=== PATIENT | female | born 1980 | race Caucasian/White ===

== ENCOUNTER 2016-12-31 01:24 | Emergency (ER) | payer MEDICAID ==
[~2016-12-31] VITALS: Ht 154.9 cm; Wt 74.0 kg
[2016-12-31 01:34] VITALS: Ht 154.9 cm; Wt 74.0 kg
[2016-12-31] MEDS ORDERED: SOD CHLORIDE 0.9% 1,000 ML IV STA (06:11)
[2016-12-31] MEDS ORDERED: ONDANSETRON 4 MG INJ IV STA (06:11)
[2016-12-31] MEDS ORDERED: FAMOTIDINE 20 MG INJ IV ONE (06:30)
[2016-12-31 07:33] LABS: ADD SCAN DIFF NO
[2016-12-31 07:36] LABS: ADD UMIC YES; BASOPHILS % 0.3 % (0.0-2.0); HEMATOCRIT 43.6 % (37.0-47.0); HEMOGLOBIN 14.2 g/dl (12.0-16.0); LYMPHOCYTES # 1.2 10^3/ul (0.8-2.9); LYMPHOCYTES % 9.6 % (15.0-51.0); MEAN CORPUSCULAR HEMOGLOBIN 29.3 pg (29.0-33.0); MEAN CORPUSCULAR HGB CONC 32.6 g/dl (32.0-37.0); MEAN CORPUSCULAR VOLUME 90.1 fl (82.0-101.0); MEAN PLATELET VOLUME 13.4 fl (7.4-10.4); MONOCYTE # 0.3 10^3/ul (0.3-0.9); NEUTROPHILS % 87.5 % (39.0-77.0); PLATELET COUNT 194 10^3/UL (140-415); RED BLOOD COUNT 4.84 10^6/ul (4.20-5.40); RED CELL DISTRIBUTION WIDTH 13.2 % (11.5-14.5); URINE BILIRUBIN (Dip) NEGATIVE (NEGATIVE); URINE BLOOD (Dip) NEGATIVE (NEGATIVE); URINE COLOR LT. YELLOW (YELLOW); URINE GLUCOSE (Dip) NEGATIVE (NEGATIVE); URINE KETONES (Dip) NEGATIVE (NEGATIVE); URINE LEUKOCYTE ESTERASE (Dip) NEGATIVE (NEGATIVE); URINE NITRITE (Dip) NEGATIVE (NEGATIVE); URINE TOTAL PROTEIN (Dip) TRACE (NEGATIVE); URINE UROBILINOGEN (Dip) 0.2 E.U./dL (0.1-1.0); WHITE BLOOD COUNT 12.6 10^3/ul (4.8-10.8)
[2016-12-31 07:49] LABS: ALBUMIN 4.6 g/dl (3.3-4.9)
[2016-12-31 07:50] LABS: INR 0.93; PARTIAL THROMBOPLASTIN TIME 25.5 Sec (25.0-35.0); POTASSIUM 3.4 mmol/L (3.5-5.1); PROTIME 12.5 Sec (12.2-14.2)
[2016-12-31 07:52] LABS: ALBUMIN/GLOBULIN RATIO 1.21; BILIRUBIN,INDIRECT 0.5 mg/dl (0-1.1); BILIRUBIN,TOTAL 0.5 mg/dl (0.2-1.3); CREATININE 0.5 mg/dl (0.44-1.00); TOTAL PROTEIN 8.4 g/dl (6.1-8.1)
[2016-12-31 07:53] LABS: CALCIUM 9.2 mg/dl (8.4-10.2)
[2016-12-31 07:56] LABS: BACTERIA,URINE FEW; URINE RBCS NONE SEEN /HPF (0)
[2016-12-31] MEDS ORDERED: MECLIZINE 12.5 MG TAB PO ONE (08:00)
--- NOTE | 2016-12-31 08:00 | RADRPT ---
PROCEDURE: XR Chest. CLINICAL INDICATION: Dizziness. TECHNIQUE: Single frontal view of the chest was obtained COMPARISON: None FINDINGS: The soft tissues are normal. The bony elements are normal. The cardiomediastinal silhouette, pulmo nary vasculature and hilar structures are normal. There is a left-sided aorta. The lungs are clear. The costophrenic angles are normal. IMPRESSION: 1. Normal chest x-ray. RPTAT:AAJJ Physician Jj Date Time Electronically viewed and signed by Physician Jj on 12/31/2016 08:00 ANUJA/
--- NOTE | 2016-12-31 08:24 | ERD ---
ER Documentation Chief Complaint Date/Time DATE: 12/31/16 Chief Complaint Dizziness HPI The patient is a 36-year-old female who presents to the emergency department with complaint of dizziness. The patient reports that last night, at approximately 10:00 pm, she began to experience dizziness, which worsens with movement of her head. She notes that when she keeps her head still, the dizziness resolves and she is asymptomatic Since onset of the dizziness, she has been feeling as if the room is spinning around her, and she has experienced several episodes of nonbilious, nonbloody emesis. She denies any vomiting since arrival to the ED. The patient also states that since yesterday morning, she has been experiencing right-sided ear pain. However, denies otorrhea, bloody discharge, hearing loss, ear fullness. Denies headache or weakness. Denies visual changes, diplopia, blurred vision, vision loss. Denies recent head injury or trauma. Denies neck pain. Denies fevers, chills. Denies chest pain, palpitations, shortness of breath, cough, lower extremity edema, calf swelling/tenderness. Denies taking any new medications. Denies , though does note that her last menstrual period was 11/20/2016, but that is because she is on the [place] Provera injection. ROS All systems reviewed and are negative except as per history of present illness. Medications Home Meds Active Scripts Amoxicillin* (Amoxicillin*) 500 Mg Cap, 500 MG PO TID for 7 Days, CAP Prov:RUTHY SESAY PA-C 12/31/16 Meclizine Hcl* (Meclizine Hcl*) 25 Mg Tablet, 25 MG PO Q8H Y for DIZZINESS, #10 TAB Prov:RUTHY SESAY PA-C 12/31/16 Allergies Allergies: Coded Allergies: No Known Allergy (Verified Allergy, Mild, 09/03/09) PMhx/Soc History of Surgery: Yes (c section ) Anesthesia Reaction: No Hx Neurological Disorder: No Hx Respiratory Disorders: No Hx Cardiac Disorders: No Hx Psychiatric Problems: No Hx Miscellaneous Medical Probl: No Hx Alcohol Use: No Hx Substance Use: No Hx Tobacco Use: No Smoking Status: Never smoker Physical Exam Vitals Vital Signs Date Time Temp Pulse Resp B/P Pulse Ox O2 Delivery O2 Flow Rate FiO2 12/31/16 08:45 77 17 111/55 99 Room Air 3/19/17 01:34 97.5 82 18 102/51 98 Physical Exam GENERAL: Well-developed, well-nourished, in no acute distress HEENT: Head is normocephalic, atraumatic. No scleral pallor or icterus. Pupils equal, round and reactive to light. Extraocular movements intact. Conjunctiva pink. No photophobia. Horizontal nystagmus. Right tympanic membrane is erythematous with dulling of the light reflex. Left tympanic membrane is clear with no effusion, dulling or erythema. No perforation. No mastoid tenderness. No otorrhea or bloody discharge. No tenderness upon palpation or manipulation of tragus or pinna. Moist mucous membranes. No pharyngeal erythema or exudates. Uvula is midline. NECK: Supple. No masses, no tenderness, no lymphadenopathy. Trachea midline. No nuchal rigidity. Full range of motion. RESPIRATORY: Lungs are clear to auscultation bilaterally. No rales, rhonchi or wheezing. Equal breath sounds. Normal expiratory effort. CARDIOVASCULAR: Regular rate and rhythm. S1 and S2 normal. No murmurs, rubs, or gallops. GASTROINTESTINAL: Abdomen is soft, nontender, and nondistended. Normal bowel sounds. EXTREMITIES: No clubbing, cyanosis, or edema. Normal skin perfusion. Moving all extremities. No focal swelling or erythema. Distal pulses are palpable, 2+ bilaterally. Capillary refill is less than 2 seconds. NEUROLOGIC: The patient is awake, alert, oriented to person, place and time. Speech is fluent. Language parameters are intact. Follows commands well. Comprehension is intact. Cranial nerves II through XII are intact. Pupils are equal and reactive bilaterally. Extraocular movements are intact. There is no nystagmus. Facial sensation and facial movements are symmetrical. Uvula elevates symmetrically. Tongue is midline. Motor examination reveals 5/5 strength in bilateral upper and lower extremities. Sensory examination is grossly intact to light touch. Reflexes symmetrical. Normal [id number] testing. No visual field deficits. Vision grossly intact. Gait is observed and normal, no ataxia. INTEGUMENT: Skin is clean, dry and intact. No rashes, lesions or petechiae present. Normal turgor. PSYCHIATRIC: Appropriate; Cooperative. Result Diagram: 12/31/16 0635 12/31/16 0635 Results 24 hrs Laboratory Tests Test 12/31/16 06:35 Activated Partial Thromboplast Time 25.5Sec Alanine Aminotransferase (ALT/SGPT) 41IU/L Albumin 4.6g/dl Albumin/Globulin Ratio 1.21 Alkaline Phosphatase 104IU/L Anion Gap 19 Aspartate Amino Transf (AST/SGOT) 30IU/L Basophils # 0.010^3/ul Basophils % 0.3% Blood Urea Nitrogen 13mg/dl Calcium Level 9.2mg/dl Carbon Dioxide Level 24mmol/L Chloride Level 105mmol/L Creatinine 0.50mg/dl Direct Bilirubin 0.00mg/dl Eosinophils # 0.010^3/ul Eosinophils % 0.0% Globulin 3.80g/dl Glucose Level 103mg/dl Hematocrit 43.6% Hemoglobin 14.2g/dl INR International Normalized Ratio 0.93 Indirect Bilirubin 0.5mg/dl Lipase 50U/L Lymphocytes # 1.210^3/ul Lymphocytes % 9.6% Mean Corpuscular Hemoglobin 29.3pg Mean Corpuscular Hemoglobin Concent 32.6g/dl Mean Corpuscular Volume 90.1fl Mean Platelet Volume 13.4fl Monocytes # 0.310^3/ul Monocytes % 2.0% Neutrophils # 11.010^3/ul Neutrophils % 87.5% Nucleated Red Blood Cells # 0.010^3/ul Nucleated Red Blood Cells % 0.0/100WBC Platelet Count 31927^3/UL Potassium Level 3.4mmol/L Prothrombin Time 12.5Sec Prothrombin Time Ratio 1.0 Red Blood Count 4.8410^6/ul Red Cell Distribution Width 13.2% Serum HCG, Qualitative NEGATIVE Sodium Level 145mmol/L Total Bilirubin 0.5mg/dl Total Protein 8.4g/dl Urine Bacteria FEW Urine Bilirubin NEGATIVE Urine Clarity CLEAR Urine Color LT. YELLOW Urine Epithelial Cells FEW Urine Glucose NEGATIVE% Urine Hemoglobin NEGATIVE Urine Ketones NEGATIVE Urine Leukocyte Esterase NEGATIVE Urine Microscopic RBC NONE SEEN/HPF Urine Microscopic WBC 0-2/HPF Urine Nitrite NEGATIVE Urine Specific [place] 1.010 Urine Total Protein TRACE Urine Urobilinogen 0.2 E.U./dL Urine pH 7.0 White Blood Count 12.610^3/ul Current Medications Medications (Trade) Dose Ordered Sig/Mayco Route PRN Reason Start Time Stop Time Status Last Admin Dose Admin Sodium Chloride (NS) 1,000 ml @ 1,000 mls/hr Q1H STAT IV 12/31/16 06:11 12/31/16 07:10 DC 12/31/16 06:37 Ondansetron HCl (Zofran Inj) 4 mg ONCE STAT IV 12/31/16 06:11 12/31/16 06:16 DC 12/31/16 06:37 Famotidine (Pepcid Iv) 20 mg ONCE ONCE IV 12/31/16 06:30 12/31/16 06:31 DC 12/31/16 06:37 Meclizine HCl (Antivert) 25 mg ONCE ONCE PO 12/31/16 08:00 12/31/16 08:01 DC 12/31/16 08:10 Procedures/MDM DIAGNOSTIC TESTS AND INTERPRETATION: PROCEDURE: XR Chest. CLINICAL INDICATION: Dizziness. TECHNIQUE: Single frontal view of the chest was obtained COMPARISON: None FINDINGS:The soft tissues are normal. The bony elements are normal. The cardiomediastinal silhouette, pulmonary vasculature and hilar structures are normal. There is a left-sided aorta. The lungs are clear. The costophrenic angles are normal. IMPRESSION: Normal chest x-ray. Physician Jj Date Time Electronically viewed and signed by Jesus Irving Physician on 12/31/2016 08:00 EKG Reviewed and Interpreted by Dr. Lee. EKG interpretation: Normal sinus rhythm. Rate 91 bpm. Normal axis. No ectopy. No ST segment elevations. No delta waves. MEDICAL DECISION MAKING: This is a 36-year-old female presenting to the Emergency Department with complaint of dizziness, right ear pain and two episodes of vomiting. The patient had a completely normal neurologic examination. GCS 15 with no history of head trauma. No indication for CT imaging at this time. EKG revealed no acute ischemic changes, no concerning acute findings. Laboratory analysis largely unremarkable. CBC reveals no leukocytosis. Hemoglobin and hematocrit with no severe anemia that would cause these symptoms. No significant electrolyte abnormalities. No hypoglycemia. Beta hCG qualitative negative. No acute findings on CXR. Patient's presentation is clinically suggestive of vertigo. She was attempting to avoid head movements, which she stated worsened the spinning. Doubt central causes of vertigo as patient has normal neurologic exam without dysarthria, diplopia, dysmetria, ataxia, and dysdiadochokinesia. Furthermore patient has no pathologic nystagmus. After rest and administration of fluids, Zofran, Meclizine the patients symptoms completely resolved. The patients right tympanic membrane was noted to be erythematous with dulling of the light reflex. Given patients recent onset of right-sided ear pain, presentation appears consistent with acute otitis media, possibly relating to the patients dizziness. No evidence of mastoiditis, otitis externa, perforation. No neck pain, doubt vertebral dissection. No dyspnea to indicate pneumonia, anemia, pulmonary embolism. No chest pain. No persistent or severe headache, doubt stroke, dissection, malignancy. Upon review and interpretation of the patient's presentation and overall ER course, I believe the patient's symptoms are most consistent with dizziness, uncertain etiology, likely vertigo, and acute right otitis media. At this time, the patient is in stable condition and therefore can be discharged home with prescription for Meclizine and Amoxicillin and given strict return precautions for signs of deteriorating or worsening condition. The patient is advised to follow up with her primary care provider within 2-3 days for re-evaluation, or return to the ER sooner for any worsening symptoms. I shared my medical decision making and plan with the patient at length and in great detail, and the patient verbally understands and agrees with the plan for further observation and care as an outpatient. At the time of discharge, all questions were answered. Departure Diagnosis: Primary Impression: Dizziness Additional Impression: Acute right otitis media Condition: Stable Patient Instructions: Dizziness (Vertigo) and Balance Problems: Ensuring Your Safety, Dizziness, Unk Cause Additional Instructions: Llame al doctor MAANA y jena alex TIAGO PARA DENTRO DE 1-2 HALL.Dgale a la secretaria que nosotros le instruimos hacer esta tiago.Avise o llame si mayes condicin se empeora antes de la tiago. Regresa aqui si peor o no mejor. RUTHY SESAY PA-C Dec 31, 2016 08:24
[2016-12-31] MEDS ORDERED: AMO500 PO (08:29)
[2016-12-31] MEDS ORDERED: MECL-77 PO (08:29)
[2016-12-31 08:45] VITALS: BP 111/55; PULSE 77; RESP 17
== END 2016-12-31 08:46 | disposition home or self-care (01) ==
LOC: FTE 01:24
DX: R42 Dizziness and giddiness (principal); H66.91 Otitis media, unspecified, right ear; R11.10 Vomiting, unspecified
CPT/HCPCS: 36415; 71010; 80053; 81001; 83690; 84703; 85025; 85610; 85730; 93005; 96374; 96375; J2405; J7030; Z7502; Z7610; 81003